=== PATIENT | female | born 1945 | race American Indian/Alaskan Native ===

== ENCOUNTER 2016-04-07 12:06 | Observation (INO) | payer MEDICARE, OTHER ==
--- NOTE | 2016-03-29 11:37 | Anesthesia Consultation ---
Anesthesia Consult and Med Hx Date of service: 03/31/16 - Airway ROM Head & Neck: Adequate Mental/Hyoid Distance: Adequate Mallampati Class: Class II - Pre-Operative Health Status ASA Pre-Surgery Classification: ASA3 Proposed Anesthetic Plan: General - Pulmonary Hx Asthma: Yes (had symptoms 2-3 yrs ago) Hx Respiratory Symptoms: Yes (recent nasal congestion, no fever) Hx Sleep Apnea: Yes (No CPAP) - Cardiovascular System Hx Hypertension: Yes (? how long) - Central Nervous System Hx Psychiatric Problems: No - Endocrine Hx Insulin Dependent Diabetes: Yes (neuropathy,) - Other Systems Hx Alcohol Use: Yes (occas) Hx Cancer: No Hx Obesity: Yes - Additional Comments Anesthesia Medical History Comments: Cardiac evaluation on chart. Perfusion scan was normal with EF 70%
[2016-03-29 12:04] LABS: Basophils % (Auto) 0.9 % (0.0-1.8); Eosinophils % (Auto) 2.1 % (0.0-4.3); Hematocrit 40.8 % (30.3-42.9); Hemoglobin 13.4 gm/dl (10.1-14.3); Mean Corpuscular HGB Conc 33 % (30-34); Mean Corpuscular Hemoglobin 28 pg (28-32); Mean Corpuscular Volume 86 fl (79-97); Platelet Count 209 K/mm3 (140-440); Red Blood Count 4.77 M/mm3 (3.65-5.03); Red Cell Distribution Width 14.9 % (13.2-15.2); White Blood Count 5.6 K/mm3 (4.5-11.0)
[2016-03-29 14:34] LABS: Anion Gap 16 mmol/L; BUN/Creatinine Ratio 11.11; Blood Urea Nitrogen 10 mg/dL (7-17); Calcium 9.1 mg/dL (8.4-10.2); Carbon Dioxide 28 mmol/L (22-30); Chloride 101.4 mmol/L (98-107); Glucose 128 mg/dL (65-100); Potassium 4.3 mmol/L (3.6-5.0); Sodium 141 mmol/L (137-145)
--- NOTE | 2016-04-06 09:00 | Admit Criteria Form ---
Admission Criteria Documentation: AMBULATORY SURGERY EXCEPTION CRITERIA Ambulatory Surgery Exception Criteria ( Place 'X' for any and all applicable criteria): Surgery or procedure performed on ambulatory basis may require inpatient stay for[A] ANY ONE of the following(1)(2)(3)(4)(5)(6)(7)(8)(9): [X] I. A preoperative situation, condition, or finding that warrants inpatient stay as indicated by ANY ONE of the following: [] a) Inpatient care needed because of severity of a disease or condition rather than the surgery (eg, severe cardiac or respiratory disease, severe infection) (15) (16 ) (17) (18) [] b) Emergent procedure (eg, angioplasty for acute ischemia)(19) [] c) Complex surgical approach or situation as indicated by ANY ONE of the following(3): [] i) Open approach needed instead of usual endoscopic, transcatheter, or other less invasive procedure [] ii) Difficult approach because of previous operation [] iii) Airway monitoring required after open neck procedures(20)(21) [] iv) Large mass requiring unusually extensive dissection [] v) Additional complicating feature requiring inpatient care (eg, drain management)(22(23): [X] d) Major surgery in a pt with high anesthetic risk as indicated by ANY ONE of the following (2)(3)(5)(7)(8): [X] i) ASA risk class III or higher (severe systemic disease impairing function) [D] [] ii) Advanced age (eg, older than 85 years)(14)(24) [] iii) Symptomatic heart failure(25) [] iv) Symptomatic asthma or COPD(8)(21) [X] v) Morbid obesity with hemodynamic or respiratory problems(20)( 21)(26)(27) [] vi) Obstructive sleep apnea(20)(21) [] vii) Former premature infants who are younger than 60 weeks [] viii) High risk for severe postoperative abnormalities (eg, severe postoperative hypocalcemia after parathyroidectomy for severe hyperparathyroidism)(27)( 28) [] ix) Unstable angina(25) [] e) Drug-related risk requiring inpatient stay as indicated by ANY ONE of the following(5)(10)(14)(32)(33) [] i) Procedure requires discontinuing drugs or other therapy (eg , antiarrhythmic medication, antiseizure medication), which necessitates inpatient observation or treatment.(18)(31) [] ii) Major surgery and high risk drug use as indicated by ANY ONE of the following: [] 1) Active abuse of cocaine or similar drug [] 2) Monoamine oxidase inhibitor use [] 3) Other drug identified as posing risk [] f) Inadequate outpatient care situation as indicated by ANY ONE of the following(5)(10)(14)(32)(33) [] i) Patient lives remote from medical facility and procedure has urgent complication potential, and temporary nearby residence cannot be arranged [] ii) Patient will have postprocedure incapacitation and inadequate assistance at home, or alternative level of care cannot be arranged. [] iii) Patient will have long general anesthesia or procedure side effect resolution time, and competent person to stay with patient on first postoperative night at home or alternative level of care cannot be arranged. []iv) Other inadequate outpatient situation that cannot be handled by other means [] II. A perioperative event, condition, or finding that warrants inpatient stay as indicated by ANY ONE of the following (1)(2)(3): [] a) Inadequate physiologic recovery: cardiovascular, respiratory, or hemodynamic status not normal or near preoperative baseline(18) [] b) Hemodynamic instability [] c) Patient not alert with near normal or baseline mental status [] d) Temperature not normal or as expected and not appropriate for outpatient treatment of condition [] e) Ambulatory or appropriate activity level status not yet achieved post procedure [E](34)(35)(36) [] f) Operative site not appropriate (eg, unexpected or excessive drainage or bleeding) [] g) Postoperative effects not resolved or adequately managed (eg, significant pain or vomiting not appropriate for outpatient or next level of care)(10)(12) [] h) Complicating features requiring inpatient care as indicated by ANY ONE of the following(37): [] i) Severe complications of procedure (eg, bowel injury, airway compromise, vascular injury,severe hemorrhage) [] ii) Extensive (eg, dissection far beyond usual scope of procedure ) or prolonged (eg, 120 minutes beyond usual) surgery needed requiring inpatient postoperative care [] iii) Conversion to an open or complex procedure that requires inpatient care (eg, open vs laparoscopic cholecystectomy, abdominal vs vaginal hysterectomy)(38) [] iv) Comorbid condition or test result identified during or post procedure that requires inpatient care (7) [] v) Malignant hyperthermia(30) [] vi) Other complicating feature requiring inpatient care(22)(23) Inpatient stay may be needed until ALL of the following are present (1)(2)(3)(4) (5)(6)(10)(14)(33)(40): []a) Physiologic recovery: cardiovascular, respiratory, and hemodynamic status normal or near preoperative baseline []b) Hemodynamic stability []c) Patient alert, with near normal or baseline mental status []d) Temperature appropriate: patient afebrile or temperature appropriate for outpt treatment of condition []e) Activity level appropriate: ambulatory or appropriate activity level post procedure []f) Operative site appropriate as indicated by ALL of the following: []i) Site dry or with expected drainage []ii) Any blood noted is as expected for procedure. []g) Postoperative effects resolved or managed as indicated by ALL of the following: []i) Pain management appropriate for outpatient (or next level of) care(10) []ii) Minimal nausea and vomiting: if present, successfully treated with oral medication(12) []iii) Headache, dizziness, or drowsiness (if present) are mild. []h) Voiding status acceptable as indicated by ANY ONE of the following: []i) Voiding spontaneously []ii) No voiding but instructions given for follow-up in 6 to 8 hours []iii) Urinary catheter in place, and instructions given for follow-up []i) Complicating features requiring inpatient care manageable at a lower level of care(37) []j) Comorbid conditions manageable at a lower level of care(37) The original [facility] content created by [employer] has been revised. The portions of the content which have been revised are identified through the use of italic text or in bold, and [facility] has neither reviewed nor approved the modified material. All other unmodified content is copyright [facility]. Please see references footnoted in the original [facility] edition 2016 Admission Criteria Met: Yes
[~2016-04-07 12:06] MED LIST: APRESOLINE ONE; MARCAINE 0.5% INFILTRATI ONE; NACL 0.9% 1000 ML 1,000 ML IV SCH; NACL BACTERIOSTATIC INFILTRATI ONE; NEURONTIN PO NR; PEPCID IV NR; PEPCID PO NR; SUBLIMAZE IV ONE; VERSED IV NR; ZOFRAN IV PRN
[2016-04-07] MEDS ORDERED: XYLOCAINE 1% 20 mL ONE (12:42)
[2016-04-07] MEDS ORDERED: DECADRON ONE (12:42)
[2016-04-07] MEDS ORDERED: VERSED ONE (12:42)
[2016-04-07] MEDS ORDERED: SUBLIMAZE ONE ×2 (12:50→13:31)
--- NOTE | 2016-04-07 13:25 | History and Physical Report ---
History of Present Illness Date of examination: 04/07/16 Chief complaint: Chronic pelvic pain Symptomatic uterine fibroids History of present illness: 71y/o BF with symptomatic uterine fibroids and chronic pelvic pain. The patient denies any vaginal bleeding. The patient elects for definitive surgical management. Past History Past Medical History: hypertension Social history: Medications and Allergies Allergies Allergy/AdvReac Type Severity Reaction Status Date / Time Beta-Blockers Allergy Unknown Verified 04/07/16 13:00 (Beta-Adrenergic Bloc prochlorperazine Allergy tongue Verified 03/25/16 12:10 [From Compazine] curls up prochlorperazine edisylate Allergy tongue Verified 03/25/16 12:10 [From Compazine] curls up prochlorperazine maleate Allergy tongue Verified 03/25/16 12:10 [From Compazine] curls up Home Medications Medication Instructions Recorded Confirmed Last Taken Type Aspirin [Aspirin TAB] 325 mg PO QDAY 03/25/16 03/25/16 Unknown History Calcium Carbonate [Tums] 200 mg PO PRN PRN 03/25/16 03/25/16 Unknown History Gabapentin [Neurontin] 800 mg PO Q8H 03/25/16 03/25/16 Unknown History Insulin NPH/Regular [Novolin 70/30] 100 unit SQ BIDDIAB 03/25/16 03/25/16 Unknown History Levothyroxine Sodium 150 mcg PO DAILY 03/25/16 03/25/16 Unknown History [Levothyroxine Sodium] Losartan [Cozaar] 50 mg PO QDAY 03/25/16 03/25/16 Unknown History Travoprost [Travatan Z 0.004%] 1 drop OU HS 03/25/16 03/25/16 Unknown History Active Meds: Active Medications Famotidine (Pepcid) 20 mg IV PREOP NR Stop: 04/07/16 23:59 Last Admin: 04/07/16 13:02 Dose: 20 mg Hydromorphone HCl (Dilaudid) 0.25 mg IV Q10MIN PRN PRN Reason: Pain, Moderate (4-6) Stop: 04/07/16 16:00 Sodium Chloride (Nacl 0.9% 1000 Ml) 1,000 mls @ 75 mls/hr IV DIRECT KORINA Last Admin: 04/07/16 12:45 Dose: 75 mls/hr Ondansetron HCl (Zofran) 4 mg IV ONCE PRN PRN Reason: Nausea And Vomiting Stop: 04/07/16 16:00 Review of Systems All systems: negative Genitourinary: pelvic pain, no vaginal bleeding - Vital Signs Vital signs: Vital Signs Temp Pulse Resp BP 99.2 F 72 16 160/90 03/29/16 11:00 03/29/16 11:00 03/29/16 11:00 03/29/16 11:00 Temp Pulse Resp BP Pulse Ox 98.1 F 67 12 162/73 100 04/07/16 13:09 04/07/16 13:09 04/07/16 13:09 04/07/16 13:09 04/07/16 13:09 - Physical Exam Breasts: Positive: deferred Cardiovascular: Regular rate Lungs: Positive: Clear to auscultation Abdomen: Positive: normal appearance Results Result Diagrams: 03/29/16 11:10 03/29/16 11:10 All other labs normal. Assessment and Plan - Patient Problems (1) Uterine fibroid Current Visit: Yes Status: Acute Qualifiers: Uterine leiomyoma location: U Plan to address problem: robotic hysterectomy and BSO (2) Chronic pelvic pain in female Current Visit: Yes Status: Acute
[2016-04-07] MEDS ORDERED: DILAUDID ONE ×2 (13:29→16:46)
[2016-04-07] MEDS ORDERED: DIPRIVAN 10 MG/ML IV ONE (13:31)
--- NOTE | 2016-04-07 13:34 | Anesthesia Day of Surgery ---
Anesthesia Day of Surgery - Day of Surgery Patient Examined: Yes Patient H&P Reviewed: Yes Patient is NPO: Yes
[2016-04-07] MEDS ORDERED: XYLOCAINE MPF 2% ONE (13:38)
--- NOTE | 2016-04-07 13:52 | Anesthesia Day of Surgery ---
Anesthesia Day of Surgery - Day of Surgery Patient Examined: Yes Patient H&P Reviewed: Yes Patient is NPO: Yes
[2016-04-07] MEDS ORDERED: ANCEF/STERILE WATER 2 GM/20 ML 2 GM/20 ML SYRINGE IV SCH (14:00)
[2016-04-07] MEDS ORDERED: PROAIR IH ONE (14:51)
[2016-04-07] MEDS ORDERED: ZOFRAN ONE (15:08)
[2016-04-07] MEDS ORDERED: ROBINUL ONE ×3 (15:10→15:42)
[2016-04-07] MEDS ORDERED: BLOXIVERZ ONE (15:11)
--- NOTE | 2016-04-07 15:38 | Operative Report ---
Operative Report Operative Report: Date of surgery: 04/07/2016 Preoperative diagnoses: Symptomatic uterine fibroids; chronic pelvic pain Postoperative diagnoses: same above Procedure: Robotic hysterectomy; bilateral salpingo-oophorectomy; lysis of adhesions Surgeon: Dana Zacarias M.D. Public Employment Mediator: Carson Pillai Anesthesia: Gen. endotracheal anesthesia Estimated blood loss: Less than 100 mL Pathology: Uterus, cervix, tubes and ovaries bilaterally Indication: 71-year-old black female with a history of symptomatically uterine fibroids and chronic pelvic pain. The patient denied any history of vaginal bleeding. The patient elected to undergo definitive surgical management. Procedure: The patient was taken to the operating room and given general endotracheal anesthesia without complication. She is prepped and draped in a normal sterile fashion. A bivalve speculum was placed in the patient's vagina and a single- tooth tenaculum placed on the anterior lip of the cervix. The uterus was sounded with the uterine sound. A [employer] uterine manipulator was placed in the bivalve speculum was then removed. Attention was then turned to the patient's abdomen where a millimeter supra umbilical skin incision was then made. A Veress needle was placed and peritoneal entry was verified water-filled syringe. Insufflation of the peritoneal cavity was performed with CO2 gas. The 12 mm trocar was then placed under direct visualization. An additional 8 mm trocar was placed on the patient's left and right lateral side just opposite of the supraumbilical trocar. An additional 5 mm right lateral trocar was then placed as the accessory port. The patient was then placed in steep Trendelenburg. The da Katie robot was then engaged. A fenestrated forcep was placed in arm 2 and a vessel sealer was placed in arm 1. The surgeon then transferred to the surgical console. It was noted that the omentum was adherent to the anterior peritoneum. Lysis of adhesions had to be performed in order to release the omentum from that site. Additionally there were areas of the bowel that were adherent to the left pelvic sidewall which were released with the monopolar scissors. The mesosalpinx was then isolated on the right. The vessel sealer was used to coagulate the infundibulopelvic ligament which was then transected. The tube and ovary were transected from its blood supply. The round ligament was then coagulated and transected also. The vesicouterine peritoneum was then entered from the patient's right side. The uterine vessels were then coagulated with the vessel sealer. The vessels were then transected . Attention was then turned to the patient's left side where the infundibulopelvic ligament and mesosalpinx were again isolated coagulated and transected. The vesical peritoneum was then entered from the left and joined in the midline. Peritoneum was reflected off of the lower uterine segment. Uterine vessels were then coagulated and then transected. The blood supply to the uterus was adequately contained, a posterior colpotomy was made. The V care ring was visualized. Posterior colpotomy was created with the monopolar scissors. The incision was continued circumferentially until anterior colpotomy was made. The cervix, uterus, tubes and ovaries were amputated from the vaginal cuff. The uterus was then removed along with the tubes and ovaries bilaterally through the vagina and a warm laparotomy sponge was placed and maintain the pneumoperitoneum. The vaginal cuff was then closed in a running fashion with V lock suture. Irrigation of the pelvis was performed. Tisseel was applied to the incision. The supraumbilical 12 mm trocar site was closed with the Christopher Tenorio device. The skin was then reapproximated with 4-0 Monocryl. The tissue was sent to pathology which included the cervix and uterus. The patient was then successfully extubated. She was then taken to the recovery room in stable condition. All sponge laps and needle counts were correct x2.
[2016-04-07] MEDS ORDERED: TYLENOL PO PRN (15:39)
[2016-04-07] MEDS ORDERED: MOTRIN PO PRN (15:39)
[2016-04-07] MEDS ORDERED: PERCOCET 5/325 PO PRN (15:39)
[2016-04-07] MEDS ORDERED: NARCAN 0.4 MG/1 ML IV PRN (15:39)
[2016-04-07] MEDS ORDERED: MORPHINE PCA 30MG/30ML IV SCH (16:00)
[2016-04-07] MEDS: DILAUDID IV PRN ×2 (16:52→17:06)
--- NOTE | 2016-04-07 17:28 | Post Anesthesia Evaluation ---
- Post Anesthesia Evaluation Patient Participated: Yes Airway Patent: Yes Stable Respiratory Function: Yes Nausea/Vomiting: No Temp > 96.8F: Yes Pain Manageable: Yes Adequeate Hydration: Yes Anesthesia Complications: No Block Receding Appropriately: Not Applicable Patient on Ventilator: No
[2016-04-07] MEDS ORDERED: D50W (25GM) IV PRN (18:30)
[2016-04-07] MEDS: NACL 0.9% 1000 ML 1,000 ML IV SCH (20:00)
[2016-04-07] MEDS ORDERED: NOVOLOG SUB-Q SCH (22:00)
[2016-04-08] MEDS: NACL 0.9% 1000 ML 1,000 ML IV SCH (04:04)
[2016-04-08 06:49] LABS: Hematocrit 36.4 % (30.3-42.9); Hemoglobin 11.5 gm/dl (10.1-14.3)
--- NOTE | 2016-04-08 08:29 | Progress Note ---
Subjective Date of service: 04/08/16 Interval history: 1st POD after robotic hysterectomy Patient is in the bed, comfortable. Pain is well controlled with pain meds. No nausea or vomiting. No anesthesia complications Objective - Constitutional Vitals: Vital Signs - 12hr 04/07/16 04/07/16 04/08/16 21:50 23:56 00:00 Temperature 98.4 F Pulse Rate [ 76 Right] Respiratory 18 18 20 Rate Blood Pressure 148/75 [Right Arm] 04/08/16 04/08/16 04/08/16 02:13 04:04 05:00 Temperature 98.4 F Pulse Rate [ 79 Right] Respiratory 20 20 20 Rate Blood Pressure 122/52 [Right Arm] - Labs CBC & Chem 7: 04/08/16 06:22 03/29/16 11:10 Labs: Abnormal lab results 04/07/16 04/07/16 04/07/16 Range/Units 12:45 21:27 22:46 POC Glucose 224 H 381 H 320 H (70-105)
--- NOTE | 2016-04-08 08:56 | Progress Note ---
Assessment and Plan - Patient Problems (1) Uterine fibroid Current Visit: Yes Status: Acute Qualifiers: Uterine leiomyoma location: U Plan to address problem: Doing well Evidence of hyperglycemia will manage with sliding scale (2) Chronic pelvic pain in female Current Visit: Yes Status: Acute Subjective - Subjective Date of service: 04/08/16 Interval history: Patient doing well. No significant complaints. She reports increase in gas. Patient reports: appetite normal, voiding normally, pain well controlled Objective - Vital Signs Latest vital signs: Vital Signs Temp Pulse Pulse Resp BP BP Pulse Ox 04/08/16 05:00 98.4 F 79 20 122/52 04/08/16 04:04 20 04/08/16 02:13 20 04/08/16 00:00 98.4 F 76 20 148/75 04/07/16 23:56 18 04/07/16 21:50 18 04/07/16 20:10 98.2 F 84 20 154/74 04/07/16 20:05 18 04/07/16 20:00 99 04/07/16 17:45 75 14 118/70 97 04/07/16 17:30 75 14 120/80 97 04/07/16 17:15 74 13 132/71 98 04/07/16 17:00 77 13 130/71 98 04/07/16 16:45 72 15 123/68 97 04/07/16 16:30 70 15 144/62 96 04/07/16 16:15 70 14 152/64 97 04/07/16 16:05 72 15 137/67 100 04/07/16 16:00 69 14 150/68 100 04/07/16 15:55 97.3 F L 73 14 166/80 100 04/07/16 13:57 76 13 107/59 97 04/07/16 13:52 71 11 L 127/52 97 04/07/16 13:47 69 12 121/52 96 04/07/16 13:35 71 12 135/53 96 04/07/16 13:33 71 12 95 04/07/16 13:30 71 12 134/52 96 04/07/16 13:26 72 12 133/56 96 04/07/16 13:17 75 14 125/56 97 04/07/16 13:12 68 12 129/52 98 04/07/16 13:09 98.1 F 67 12 162/73 100 04/07/16 13:08 64 12 119/53 98 04/07/16 13:03 64 12 114/51 98 04/07/16 12:58 67 12 127/54 97 04/07/16 12:53 72 12 152/68 97 04/07/16 12:15 98.1 F 67 12 162/73 100 Intake and Output 04/07/16 04/08/16 04/08/16 22:59 06:59 14:59 Intake Total 500 1850 Output Total 700 800 Balance -200 1050 Intake: IV 500 1750 NaCl 0.9% 1000 ml 1,086 222 9582 ml @ 125 mls/hr IV DIRECT KORINA Rx#:[id number] Oral 100 Output: Urine 700 800 Indwelling Catheter 400 800 Other: Total, Intake Amount 100 Total, Output Amount 400 200 Voiding Method Indwelling Catheter - Exam Abdomen: Present: normal appearance, soft Incision: Present: normal - Labs Labs: Abnormal lab results 04/07/16 04/07/16 04/07/16 Range/Units 12:45 21:27 22:46 POC Glucose 224 H 381 H 320 H (70-105)
--- NOTE | 2016-04-08 08:58 | Discharge Summary ---
Providers - Providers Date of Admission: 04/07/16 15:39 Date of discharge: 04/08/16 Attending physician: HELLEN RICHARDS Primary care physician: VIRGIE LUNA Hospitalization Reason for admission: other (chronic pelvic pain and symptomatic uterine fibroids) Procedure: other (robotic hysterectomy and bilateral salpingo-oophorectomy) Incision: normal Discharge diagnosis: other (symptomatic uterine fibroids and chronic pelvic pain ) Hospital course: The patient was admitted the day of surgery underwent a robotic hysterectomy and bilateral salpingo-oophorectomy. Please see operative note for details. Postoperative course was significant for hyperglycemia which is the patient has a known history of diabetes mellitus. The patient was managed with the insulin sliding scale. She was discharged home when she met discharge criteria. Condition at discharge: Good Disposition: DISCHARGED TO HOME OR SELFCARE - Discharge Diagnoses (1) Uterine fibroid Status: Acute Qualifiers: Uterine leiomyoma location: U (2) Chronic pelvic pain in female Status: Acute Plan - Discharge Medications Prescriptions: Docusate Sodium [Colace] 100 mg PO BID PRN #60 capsule PRN Reason: Constipation Hydromorphone HCl [Dilaudid] 8 mg PO TID #45 tablet Ibuprofen [Motrin] 800 mg PO Q8HR PRN #60 tablet PRN Reason: Pain Triamcinolone 0.1% [Kenalog 0.1% CREAM] 1 applic TP TID #1 tube - Provider Discharge Summary Activity: no sex for 6 weeks, no heavy lifting 4 weeks, no strenuous exercise Diet: routine Instructions: routine Additional instructions: [] Smoking cessation referral if applicable(refer to patient education folder for contact #) [] Refer to [facility] Book[facility] Call your doctor immediately for: * Fever > 100.5 * Heavy vaginal bleeding ( >1 pad per hour) * Severe persistent headache * Shortness of breath * Reddened, hot, painful area to leg or breast * Drainage or odor from incision. * Keep incision clean and dry at all times and follow doctor's instructions regarding bathing/showering Schedule follow-up in [address] Richards - Follow up plan
[2016-04-08] MEDS ORDERED: MYLICON PO PRN (09:00)
[2016-04-08] MEDS ORDERED: KENALOG TP SCH (10:00)
[2016-04-08 11:14] VITALS: BP 150/60
== END 2016-04-08 10:30 | disposition home or self-care (01) ==
LOC: OR 12:06 → OB 15:39
PROVIDERS: ADMIT Obstetrics & Gynecology; ATTEND Obstetrics & Gynecology
DX: D25.9 Leiomyoma of uterus, unspecified (principal); G89.29 Other chronic pain
CPT/HCPCS: 36415; 58571; 64450; 80048; 82962; 85014; 85018; 85025; 86850; 86900; 86901; 88307; 96372; 96374; 96375; C9250; G0378; J0360; J0690; J1100; J1170; J2250; J2270; J2405; J2704; J2710; J3010; J7030; J1815

== ENCOUNTER 2017-06-16 09:57 | Outpatient (CLI) | payer MEDICARE ==
--- NOTE | 2017-06-17 07:40 | Mammography Report ---
BONE DENSITY STUDY: DEFINITIONS: BMD = Bone Mineral Density T-score = BMD related to mean peak bone mass of young adult (mean expressed in Standard Deviation) Z-score = Age matched BMD expressed in SD World Health Organization (WHO) Diagnostic Criteria Normal T-score > -1 SD Osteopenia T-score between -1 and -2.4 SD Osteoporosis T-score -2.5 SD or below FINDINGS: The weighted average BMD of lumbar spine L1-L4 is 1.26 with a T-score of 2. The weighted average BMD of hip is 1.302 with a T-score of 2.9. IMPRESSION: The patient's T-score is diagnostic for normal bone density and low relative risk for fracture. NOTE: BMD is not the only risk factor for fracture; also consider factors such as the patient's age, risk of falling, previous osteoporotic fracture, family history of osteoporotic fractures, current smoker, and low body weight. Drummond's triangle is a region of interest in femur, predominantly of trabecular bone. It is not a true anatomic site, and [facility] does not recommend its use clinically.
== END 2017-06-16 09:58 | disposition home or self-care (01) ==
LOC: MAMMO 09:57
PROVIDERS: ATTEND Specialist
DX: Z13.828 Encounter for screening for other musculoskeletal disorder (principal); E11.9 Type 2 diabetes mellitus without complications; I10 Essential (primary) hypertension; E03.9 Hypothyroidism, unspecified; M06.80 Other specified rheumatoid arthritis, unspecified site; M54.5 Low back pain; Z79.899 Other long term (current) drug therapy; Z79.4 Long term (current) use of insulin; Z78.0 Asymptomatic menopausal state
CPT/HCPCS: 77080

== ENCOUNTER 2018-07-04 21:27 | Emergency (ER) | payer MEDICARE ==
[2018-07-04] MEDS ORDERED: ASPIRIN PO ONE (21:38)
[2018-07-04] MEDS ORDERED: DECADRON IV ONE (21:50)
[2018-07-04] MEDS ORDERED: APRESOLINE IV ONE (21:51)
[2018-07-04] MEDS ORDERED: HumuLIN R IV ONE (21:51)
[2018-07-04 22:25] LABS: Basophils # (Auto) 0.1 K/mm3 (0.0-0.1); Eosinophils # (Auto) 0.2 K/mm3 (0.0-0.4); Eosinophils % (Auto) 3.6 % (0.0-4.3); Hematocrit 37.8 % (30.3-42.9); Hemoglobin 12.4 gm/dl (10.1-14.3); Lymphocytes # (Auto) 1.9 K/mm3 (1.2-5.4); Lymphocytes % (Auto) 34.6 % (13.4-35.0); Mean Corpuscular HGB Conc 33 % (30-34); Mean Corpuscular Volume 90 fl (79-97); Monocytes # (Auto) 0.4 K/mm3 (0.0-0.8); Monocytes % (Auto) 8.1 % (0.0-7.3); Platelet Count 109 K/mm3 (140-440); Red Blood Count 4.22 M/mm3 (3.65-5.03); Red Cell Distribution Width 16.2 % (13.2-15.2)
[2018-07-04 22:42] LABS: BUN/Creatinine Ratio 9; Blood Urea Nitrogen 8 mg/dL (7-17); Calcium 9.4 mg/dL (8.4-10.2); Hemolysis Index 23
--- NOTE | 2018-07-04 23:03 | Emergency Department Report ---
ED Shortness of Breath HPI - General Chief Complaint: Hyperglycemia Stated Complaint: HYPERGLYCEMIA Time Seen by Provider: 07/04/18 21:38 Source: patient, EMS, old records reviewed Mode of arrival: Stretcher Limitations: Physical Limitation - History of Present Illness Initial Comments: 73-year-old female the past medical history of diabetes, asthma in the past, GERD, and hypertension presents with possible complaints of stridor since discharge from the hospital 2 days ago. Recent admission patient presents with alteration in mental status, hypoglycemia, and hypoxia. She was intubated in the ED on 06/29 and extubated on 06/30. Patient did develop postextubation fever prior to d/c. Chest x-ray was negative and she was empirically treated with Le vaquin. Patient states that since her discharge from the hospital on 07/02 she has had noisy breathing that has been primarily while sleeping but worse tonight. Patient states she has been having intermittent wheezing even prior to her admission but has not been treated for asthma for several years. She does not currently have any bronchodilators or steroids at home. - Related Data Home Medications Medication Instructions Recorded Confirmed Last Taken Levothyroxine Sodium 150 mcg PO DAILY 03/25/16 06/29/18 04/07/16 09:00 Gabapentin [Neurontin] 100 mg PO BID 06/29/18 06/29/18 Unknown Pravastatin Sodium [Pravastatin] 10 mg PO QHS 06/29/18 06/29/18 Unknown metHOTREXate(DOSE WEEKLY ONLY) 2.5 mg PO QWEEK 06/29/18 06/29/18 Unknown [metHOTREXate (DOSE WEEKLY ONLY)] Travatan Z 0.004% 0.04 drop OU DAILY 06/30/18 06/30/18 Unknown Olmesartan Medoxomil [Benicar] 40 mg PO DAILY 07/01/18 07/01/18 06/29/18 Previous Rx's Medication Instructions Recorded Last Taken Type Acetaminophen [Acetaminophen TAB] 325 mg PO Q6H PRN #15 tablet 07/02/18 Unknown Rx Insulin Detemir [Levemir VIAL] 10 unit SQ BID #30 07/02/18 Unknown Rx Insulin Lispro [Humalog 100 1 dose SQ AC #30 07/02/18 Unknown Rx UNITS/ML Kwikpen] levoFLOXacin [Levaquin] 750 mg PO QDAY #5 tablet 07/02/18 Unknown Rx Allergies Allergy/AdvReac Type Severity Reaction Status Date / Time Beta-Blockers Allergy Unknown Verified 04/07/16 13:00 (Beta-Adrenergic Bloc prochlorperazine Allergy tongue Verified 03/25/16 12:10 [From Compazine] curls up prochlorperazine edisylate Allergy tongue Verified 03/25/16 12:10 [From Compazine] curls up prochlorperazine maleate Allergy tongue Verified 03/25/16 12:10 [From Compazine] curls up ED Review of Systems ROS: Stated complaint: HYPERGLYCEMIA Other details as noted in HPI Comment: All other systems reviewed and negative ED Past Medical Hx - Past Medical History Hx Hypertension: Yes (? how long) Hx Diabetes: Yes (since 1971) Hx GERD: Yes Hx Arthritis: Yes (R knee, freda shoulders) Hx Asthma: Yes (had symptoms 2-3 yrs ago) Hx HIV: No - Social History Smoking Status: Never Smoker Substance Use Type: Alcohol - Medications Home Medications: Home Medications Medication Instructions Recorded Confirmed Last Taken Type Levothyroxine Sodium 150 mcg PO DAILY 03/25/16 06/29/18 04/07/16 09:00 History Gabapentin [Neurontin] 100 mg PO BID 06/29/18 06/29/18 Unknown History Pravastatin Sodium [Pravastatin] 10 mg PO QHS 06/29/18 06/29/18 Unknown History metHOTREXate(DOSE WEEKLY ONLY) 2.5 mg PO QWEEK 06/29/18 06/29/18 Unknown History [metHOTREXate (DOSE WEEKLY ONLY)] Travatan Z 0.004% 0.04 drop OU DAILY 06/30/18 06/30/18 Unknown History Olmesartan Medoxomil [Benicar] 40 mg PO DAILY 07/01/18 07/01/18 06/29/18 History Acetaminophen [Acetaminophen TAB] 325 mg PO Q6H PRN #15 tablet 07/02/18 Unknown Rx Insulin Detemir [Levemir VIAL] 10 unit SQ BID #30 07/02/18 06/29/18 Unknown Rx Insulin Lispro [Humalog 100 1 dose SQ AC #30 07/02/18 06/29/18 Unknown Rx UNITS/ML Kwikpen] levoFLOXacin [Levaquin] 750 mg PO QDAY #5 tablet 07/02/18 Unknown Rx ED Physical Exam - General Limitations: Physical Limitation - Other Other exam information: General: Mild respiratory distress Head exam: Atraumatic, normocephalic Eyes exam: Normal appearance, pupils equal reactive to light, extraocular movements intact ENT: Moist mucous membrane, normal oropharynx Neck exam: Normal inspection, full range of motion, no meningismus nontender, in spiratory stridor Respiratory exam: Clear to auscultation bilateral, no wheezes, rales, crackles Cardiovascular: Normal rate and rhythm, normal heart sounds Abdomen: Soft, nondistended, and nontender, with normal bowel sounds, no rebound, or guarding Extremity: Full range of motion normal inspection no deformity Back: Normal Inspection, full range of motion, no tenderness Neurologic: Alert, oriented x3, cranial nerves intact, no motor or sensory deficit Psychiatric: normal affect, normal mood Skin: Warm, dry, intact ED Course Vital Signs 07/04/18 07/04/18 07/04/18 21:30 21:35 21:41 Temperature 98.7 F Pulse Rate 93 H Pulse Rate [ 95 H Anterior Bilateral] Respiratory 21 Rate Respiratory 18 Rate [Anterior Bilateral] Blood Pressure 191/82 O2 Sat by Pulse 97 97 Oximetry 07/04/18 07/04/18 07/04/18 21:45 21:58 22:00 Temperature Pulse Rate 98 H 95 H Pulse Rate [ 96 H Anterior Bilateral] Respiratory 13 18 Rate Respiratory 25 H Rate [Anterior Bilateral] Blood Pressure 207/112 207/112 O2 Sat by Pulse 93 96 Oximetry 07/04/18 07/04/18 07/04/18 22:16 22:30 22:46 Temperature Pulse Rate 92 H 93 H 94 H Pulse Rate [ Anterior Bilateral] Respiratory 19 14 25 H Rate Respiratory Rate [Anterior Bilateral] Blood Pressure 207/112 176/68 150/59 O2 Sat by Pulse 96 94 Oximetry 07/04/18 07/04/18 07/04/18 23:00 23:02 23:15 Temperature Pulse Rate 86 86 Pulse Rate [ 82 Anterior Bilateral] Respiratory 19 14 Rate Respiratory 17 Rate [Anterior Bilateral] Blood Pressure 149/58 154/49 O2 Sat by Pulse 94 95 Oximetry 07/04/18 23:30 Temperature Pulse Rate 85 Pulse Rate [ Anterior Bilateral] Respiratory 19 Rate Respiratory Rate [Anterior Bilateral] Blood Pressure 163/65 O2 Sat by Pulse 96 Oximetry - Reevaluation(s) Reevaluation #1: 07/04/18 23:08 Patient is now receiving her second racemic epi and she did receive Decadron 10 and stridor and there is no stridor present at this time. Patient also received hydralazine IV for elevated blood pressure while receiving racemic epi treatment. Positive reduction and blood pressure noted. - Consultations Consultation #1: 07/04/18 23:[address] Montero (ENT) and Dr Mera (ED) attending with [facility], Pt will be tx to ED for evaluation ED Medical Decision Making - Lab Data Result diagrams: 07/04/18 21:59 07/04/18 21:59 Lab Results 07/04/18 07/04/18 07/04/18 Range/Units 21:41 21:59 21:59 WBC 5.4 (4.5-11.0) K/mm3 RBC 4.22 (3.65-5.03) M/mm3 Hgb 12.4 (10.1-14.3) gm/dl Hct 37.8 (30.3-42.9) % MCV 90 (79-97) fl MCH 30 (28-32) pg MCHC 33 (30-34) % RDW 16.2 H (13.2-15.2) % Plt Count 109 L (140-440) K/mm3 Lymph % (Auto) 34.6 (13.4-35.0) % [place] % (Auto) 8.1 H (0.0-7.3) % Eos % (Auto) 3.6 (0.0-4.3) % Baso % (Auto) 1.0 (0.0-1.8) % Lymph # 1.9 (1.2-5.4) K/mm3 [place] # 0.4 (0.0-0.8) K/mm3 Eos # 0.2 (0.0-0.4) K/mm3 Baso # 0.1 (0.0-0.1) K/mm3 Seg Neutrophils % 52.7 (40.0-70.0) % Seg Neutrophils # 2.9 (1.8-7.7) K/mm3 VBG pH (7.320-7.420) Sodium 136 L (137-145) mmol/L Potassium 3.6 (3.6-5.0) mmol/L Chloride 95.2 L (98-107) mmol/L Carbon Dioxide 23 (22-30) mmol/L Anion Gap 21 mmol/L BUN 8 (7-17) mg/dL Creatinine 0.9 (0.7-1.2) mg/dL Estimated GFR > 60 ml/min BUN/Creatinine Ratio 9 % Glucose 377 H (65-100) mg/dL POC Glucose 365 H (70-105) Calcium 9.4 (8.4-10.2) mg/dL 07/04/18 Range/Units 21:59 WBC (4.5-11.0) K/mm3 RBC (3.65-5.03) M/mm3 Hgb (10.1-14.3) gm/dl Hct (30.3-42.9) % MCV (79-97) fl MCH (28-32) pg MCHC (30-34) % RDW (13.2-15.2) % Plt Count (140-440) K/mm3 Lymph % (Auto) (13.4-35.0) % [place] % (Auto) (0.0-7.3) % Eos % (Auto) (0.0-4.3) % Baso % (Auto) (0.0-1.8) % Lymph # (1.2-5.4) K/mm3 [place] # (0.0-0.8) K/mm3 Eos # (0.0-0.4) K/mm3 Baso # (0.0-0.1) K/mm3 Seg Neutrophils % (40.0-70.0) % Seg Neutrophils # (1.8-7.7) K/mm3 VBG pH 7.399 (7.320-7.420) Sodium (137-145) mmol/L Potassium (3.6-5.0) mmol/L Chloride (98-107) mmol/L Carbon Dioxide (22-30) mmol/L Anion Gap mmol/L BUN (7-17) mg/dL Creatinine (0.7-1.2) mg/dL Estimated GFR ml/min BUN/Creatinine Ratio % Glucose (65-100) mg/dL POC Glucose (70-105) Calcium (8.4-10.2) mg/dL - EKG Data -: EKG Interpreted by Ok EKG shows normal: sinus rhythm, axis (qrs 21), QRS complexes (qrsd 83), ST-T waves (no stemi/ t inv) Rate: normal (94) - Radiology Data Radiology results: report reviewed PROCEDURE: XR CHEST 1V AP TECHNIQUE: Chest radiograph single view. HISTORY: Chest Pain COMPARISONS: July 01, 2018 . FINDINGS: Heart: Normal. Mediastinum/Vess els: Normal. Lungs/Pleural space: Lungs are expanded. There are no infiltrates, effusions or pneumothoraces.. Bony thorax: No acute osseous abnormality. Life support devices: None. IMPRESSION: No acute cardiopulmonary abnormality. PROCEDURE: XR NECK SOFT TISSUE TECHNIQUE: Soft tissue neck radiographs, 2 views, including AP and lateral. HISTORY: stridor, recent extubation COMPARISONS: None . FINDINGS: Bone mineralization: Normal . Alignment: Normal . Soft tissues: Epiglottis and hypopharyngeal soft tissues normal . Foreign bodies: None . IMPRESSION: Normal Examination . - Medical Decision Making Pt with extubation stridor. Improving after Decadron and racemic epi. Patient will be transferred to [facility] for evaluation. We do not have ENT available here. Patient also hyperglycemic and treated with insulin. No signs of anion gap acidosis to suggest DKA at this time. - Differential Diagnosis tracheal stenosis, tracheal secretions, allergic reaction, Critical Care Time: No Critical care attestation.: If time is entered above; I have spent that time in minutes in the direct care of this critically ill patient, excluding procedure time. ED Disposition Clinical Impression: Postextubation stridor, Uncontrolled diabetes mellitus Disposition: DC/TX-[id number] ANOTHER TYPE HLTHCARE Is pt being admited?: No Condition: Stable Time of Disposition: 23:37 (DR Montero, Dr Mera)
--- NOTE | 2018-07-04 23:15 | XRay Report ---
PROCEDURE: XR CHEST 1V AP TECHNIQUE: Chest radiograph single view. HISTORY: Chest Pain COMPARISONS: July 01, 2018 . FINDINGS: Heart: Normal. Mediastinum/Vessels: Normal. Lungs/Pleural space: Lungs are expanded. There are no infiltrates, effusions or pneumothoraces.. Bony thorax: No acute osseous abnormality. Life support devices: None. IMPRESSION: No acute cardiopulmonary abnormality. This document is electronically signed by Rodrigo Gonsalez MD., Jul 04 2018 11:13:22 PM ET
--- NOTE | 2018-07-04 23:52 | XRay Report ---
PROCEDURE: XR NECK SOFT TISSUE TECHNIQUE: Soft tissue neck radiographs, 2 views, including AP and lateral. HISTORY: stridor, recent extubation COMPARISONS: None . FINDINGS: Bone mineralization: Normal . Alignment: Normal . Soft tissues: Epiglottis and hypopharyngeal soft tissues normal . Foreign bodies: None . IMPRESSION: Normal Examination . This document is electronically signed by Rodrigo Gonsalez MD., Jul 04 2018 11:50:55 PM ET
[2018-07-05 00:53] VITALS: BP 140/64
== END 2018-07-05 00:55 | disposition other institution (70) ==
LOC: ED 21:27
DX: E11.65 Type 2 diabetes mellitus with hyperglycemia (principal); R06.1 Stridor; K21.9 Gastro-esophageal reflux disease without esophagitis; M19.90 Unspecified osteoarthritis, unspecified site; J45.909 Unspecified asthma, uncomplicated; I10 Essential (primary) hypertension; Z79.4 Long term (current) use of insulin; Z88.8 Allergy status to other drugs, medicaments and biological substances; Z88.5 Allergy status to narcotic agent
CPT/HCPCS: 36415; 70360; 71045; 80048; 82805; 82962; 85025; 93005; 93010; 94640; 96374; 96375; 99285; J0360; J1100; J1815